=== PATIENT | female | born 2000 | race Caucasian/White ===

== ENCOUNTER 2021-03-06 01:56 | Emergency (ER) | payer MEDICAID ==
[~2021-03-06] VITALS: Ht 162.6 cm; Wt 69.9 kg
[2021-03-06 02:19] VITALS: BP 140/85
--- NOTE | 2021-03-06 03:11 | NUR ---
PT EVALUATED AND CLEARED FOR DISCHARGE BY DR. DIALLO. PT LEFT FACILTY WITHOUT RECEIVING DISCHARGE INSTRUCTIONS.
== END 2021-03-06 03:11 | disposition home or self-care (01) ==
LOC: MED 01:56
DX: F41.9 Anxiety disorder, unspecified (principal); R00.2 Palpitations
CPT/HCPCS: 93005; 99283